=== PATIENT | male | born 1935 | race Caucasian/White ===

== ENCOUNTER → 2016-02-23 | Outpatient (CLI) | payer MEDICARE, OTHER ==
[2016-02-23 10:27] LABS: HEMATOCRIT 34.6 % (37.9-51.0); HEMOGLOBIN 11.3 g/dL (13.5-17.0); HGB HCT DIFFERENCE -0.7; MEAN CORPUSCULAR HEMOGLOBIN 31.5 pg (27.0-33.4); MEAN CORPUSCULAR HGB CONC 32.6 g/dL (32.0-36.0); MEAN CORPUSCULAR VOLUME 97 fl (80-97); RED BLOOD COUNT 3.58 10^6/uL (4.35-5.55); RED CELL DISTRIBUTION WIDTH 13.1 % (11.5-14.0); WHITE BLOOD COUNT 6.9 10^3/uL (4.0-10.5)
[2016-02-23 11:00] LABS: ANION GAP 9 (5-19); BLOOD UREA NITROGEN 31 mg/dL (7-20); CALCIUM 9.4 mg/dL (8.4-10.2); CARBON DIOXIDE 30 mmol/L (22-30); CHLORIDE 106 mmol/L (98-107); CREATININE RESULT 1.12 mg/dL (0.52-1.25); GLUCOSE 93 mg/dL (75-110); POTASSIUM 5.2 mmol/L (3.6-5.0); SODIUM 145.3 mmol/L (137-145)
== END ==
LOC: OD 08:40
PROVIDERS: ATTEND Internal Medicine Nephrology
DX: I12.9 Hypertensive chronic kidney disease with stage 1 through stage 4 chronic kidney disease, or unspecified chronic kidney disease (principal); N18.3 Chronic kidney disease, stage 3 (moderate); E87.5 Hyperkalemia; D64.9 Anemia, unspecified
CPT/HCPCS: 36415; 80048; 85027

== ENCOUNTER 2016-03-08 06:21 | Emergency (ER) | payer MEDICARE, OTHER ==
[2016-03-08 07:59] LABS: PROTHROMBIN TIME 13.6 SEC (11.4-15.4)
[2016-03-08 08:01] LABS: ALANINE AMINOTRANSFERASE 20 U/L (21-72); ALBUMIN 3.7 g/dL (3.5-5.0); ALKALINE PHOSPHATASE 42 U/L (38-126); ANION GAP 10 (5-19); ASPARTATE AMINO TRANSFERASE 12 U/L (17-59); BILIRUBIN,TOTAL 0.5 mg/dL (0.2-1.3); BLOOD UREA NITROGEN 29 mg/dL (7-20); CALCIUM 9.4 mg/dL (8.4-10.2); CARBON DIOXIDE 29 mmol/L (22-30); CHLORIDE 106 mmol/L (98-107); CREATINE KINASE 59 U/L (55-170); CREATININE RESULT 1.42 mg/dL (0.52-1.25); GLUCOSE 87 mg/dL (75-110); LIPASE 437.4 U/L (23-300); MAGNESIUM 1.9 mg/dL (1.6-2.3); POTASSIUM 4.5 mmol/L (3.6-5.0); SODIUM 144.5 mmol/L (137-145); TOTAL PROTEIN 6.7 g/dL (6.3-8.2)
[2016-03-08 08:03] LABS: ABSOLUTE EOSINOPHILS # (AUTO) 0.1 10^3/uL (0.0-0.6); ABSOLUTE LYMPHOCYTES (AUTO) 3.3 10^3/uL (0.5-4.7); ABSOLUTE MONOCYTES (AUTO) 0.8 10^3/uL (0.1-1.4); ABSOLUTE NEUT (AUTO) 4.9 10^3/uL (1.7-8.2); BASOPHILS % (AUTO) 0.3 % (0-2); EOSINOPHILS % (AUTO) 1.5 % (0-6); HEMATOCRIT 33.8 % (37.9-51.0); HEMOGLOBIN 11.4 g/dL (13.5-17.0); HGB HCT DIFFERENCE 0.4; LYMPHOCYTES % (AUTO) 36.1 % (13-45); MEAN CORPUSCULAR HGB CONC 33.6 g/dL (32.0-36.0); MEAN CORPUSCULAR VOLUME 95 fl (80-97); MONOCYTES % (AUTO) 8.8 % (3-13); RED BLOOD COUNT 3.55 10^6/uL (4.35-5.55); RED CELL DISTRIBUTION WIDTH 13.1 % (11.5-14.0); SEGMENTED NEUTROPHILS % (AUTO) 53.3 % (42-78); URINE BARBITURATES SCREEN NEGATIVE; URINE METHADONE SCREEN NEGATIVE; URINE OPIATES LOW NEGATIVE; URINE PHENCYCLIDINE SCREEN NEGATIVE; WHITE BLOOD COUNT 9.2 10^3/uL (4.0-10.5)
[2016-03-08 08:25] LABS: CREATINE KINASE MB < 0.22 ng/mL (<4.55); TROPONIN I < 0.012 ng/mL
--- NOTE | 2016-03-08 08:30 | EKG REPORT ---
SEVERITY:- NORMAL ECG - SINUS RHYTHM : Confirmed by: Lisa Johnson 08-Mar-2016 08:28:53
[2016-03-08 09:00] LABS: APPEARANCE,URINE CLEAR; BILIRUBIN,URINE NEGATIVE (NEGATIVE); GLUCOSE, URINE NEGATIVE (NEGATIVE); KETONES,URINE NEGATIVE (NEGATIVE); LEUKOCYTE ESTERASE,URINE NEGATIVE (NEGATIVE); NITRITE,URINE NEGATIVE (NEGATIVE); PROTEIN,URINE NEGATIVE (NEGATIVE); URINE SPECIFIC GRAVITY 1.009; UROBILINOGEN,URINE NEGATIVE mg/dL (<2.0)
--- NOTE | 2016-03-08 12:18 | ER Document Report ---
ED General - General Chief Complaint: Altered Mental Status Stated Complaint: POSSIBLE STROKE TRAVEL OUTSIDE OF THE [place] IN LAST 30 DAYS: No - HPI Patient complains to provider of: altered mental status possible stroke Notes: EMS reports there called to the patient's house for altered mental status and possible stroke states that the son noticed patient has some facial drooping states last time patient was seen normal according to the son at scene was 10: 00 last night. Patient had symptoms upon awakening according to EMS report. Upon arrival patient is confused with what seems to be expressive aphasia able to move all 4 extremities. Due to the patient's expressive aphasia the history of present illness was very limited. The family at bedside. Patient otherwise alert no signs of impending distress - Related Data Allergies/Adverse Reactions: No Known Allergies Allergy (Verified 09/18/14 19:13) Past Medical History - Social History Smoking Status: Unknown if Ever Smoked Family History: Reviewed & Not Pertinent Patient has suicidal ideation: No Patient has homicidal ideation: No - Past Medical History Cardiac Medical History: Reports: Hx Hypercholesterolemia, Hx Hypertension Neurological Medical History: Reports: Hx Seizures Renal/ Medical History: Reports: Hx Benign Prostatic Hyperplasia. Denies: Hx Peritoneal Dialysis - Immunizations Hx Diphtheria, Pertussis, Tetanus Vaccination: No Review of Systems - Review of Systems -: Yes ROS unobtainable due to patient's medical condition - Altered mental status Physical Exam - Vital signs Vitals: Temp Pulse Resp BP Pulse Ox 98.1 F 64 16 149/93 H 100 03/08/16 06:23 03/08/16 06:23 03/08/16 06:23 03/08/16 06:23 03/08/16 06:23 Interpretation: Normal - General General appearance: Appears well, Alert - HEENT Head: Normocephalic, Atraumatic Eyes: Normal Pupils: PERRL - Respiratory Respiratory status: No respiratory distress Chest status: Nontender Breath sounds: Normal Chest palpation: Normal - Cardiovascular Rhythm: Regular Heart sounds: Normal auscultation Murmur: No - Abdominal Inspection: Normal Distension: No distension Bowel sounds: Normal Tenderness: Nontender Organomegaly: No organomegaly - Back Back: Normal, Nontender - Extremities General upper extremity: Normal inspection, Nontender, Normal color, Normal ROM , Normal temperature General lower extremity: Normal inspection, Nontender, Normal color, Normal ROM , Normal temperature, Normal weight bearing. No: Tammi's sign - Neurological Neuro grossly intact: Yes [place] Coma Scale Eye Opening: Spontaneous [place] Coma Scale Verbal: Confused [place] Coma Scale Motor: Obeys Commands [place] Coma Scale Total: 14 Speech: Expressive aphasia Motor strength normal: LUE, RUE, LLE, RLE Sensory: Normal - Psychological Associated symptoms: Confused - Skin Skin Temperature: Warm Skin Moisture: Dry Skin Color: Normal Course - Re-evaluation Re-evalutation: 03/08/16 14:25 Patient coming in for evaluation of altered mental status. The patient's daughter arrived at bedside. Upon evaluation daughter states that her father is no signs of acute distress or change. States that the patient normally has expressive aphasia difficulty speaking due to previous strokes. Patient's lab work and evaluation revealed no other critical etiology. Patient remained stable here in the ER no signs of stroke. Long discussion with family members at bedside due to no acute findings recommend discharge home family members agree - Vital Signs Vital signs: Temp Pulse Resp BP Pulse Ox 98.1 F 60 24 H 141/95 H 99 03/08/16 06:23 03/08/16 10:44 03/08/16 12:01 03/08/16 12:01 03/08/16 12:01 - Laboratory Result Diagrams: 03/08/16 06:55 03/08/16 06:55 Laboratory results interpreted by me: 03/08/16 03/08/16 06:55 06:55 RBC 3.55 L Hgb 11.4 L Hct 33.8 L Plt Count 100 L BUN 29 H Creatinine 1.42 H Est GFR ( Amer) 58 L Est GFR (Non-Af Amer) 48 L AST 12 L ALT 20 L Lipase 437.4 H Discharge - Discharge Clinical Impression: Expressive aphasia, History of CVA (cerebrovascular accident) Condition: Good Disposition: HOME, SELF-CARE Additional Instructions: Patient was seen and evaluated here for possible onset of altered mental status. There is no significant are clear etiology for any altered mental status. Patient seems to be back to baseline at this time. No need for antibiotics or surgery or admission to the hospital. We recommend following up with your primary care physician within one week
[2016-03-08 12:23] VITALS: BP 141/95
== END 2016-03-08 12:00 | disposition home or self-care (01) ==
LOC: ER 06:21
DX: R47.01 Aphasia (principal); R41.82 Altered mental status, unspecified; E78.00 Pure hypercholesterolemia, unspecified; I10 Essential (primary) hypertension; Z86.73 Personal history of transient ischemic attack (TIA), and cerebral infarction without residual deficits
CPT/HCPCS: 36415; 70450; 71010; 80053; 80177; 80307; 81001; 82550; 82553; 83690; 83735; 84484; 85025; 85610; 93005; 93010; 99285

== ENCOUNTER → 2016-08-05 | Outpatient (CLI) | payer MEDICARE, OTHER ==
[2016-08-05 15:13] LABS: HEMATOCRIT 31.5 % (37.9-51.0); HEMOGLOBIN 10.5 g/dL (13.5-17.0); MEAN CORPUSCULAR HEMOGLOBIN 32.2 pg (27.0-33.4); MEAN CORPUSCULAR HGB CONC 33.4 g/dL (32.0-36.0); MEAN CORPUSCULAR VOLUME 97 fl (80-97); RED BLOOD COUNT 3.27 10^6/uL (4.35-5.55); RED CELL DISTRIBUTION WIDTH 13.5 % (11.5-14.0); WHITE BLOOD COUNT 7.1 10^3/uL (4.0-10.5)
[2016-08-05 15:29] LABS: ANION GAP 12 (5-19); BLOOD UREA NITROGEN 28 mg/dL (7-20); CALCIUM 9.5 mg/dL (8.4-10.2); CARBON DIOXIDE 25 mmol/L (22-30); CHLORIDE 104 mmol/L (98-107); CREATININE RESULT 1.37 mg/dL (0.52-1.25); MAGNESIUM 1.9 mg/dL (1.6-2.3); POTASSIUM 5.2 mmol/L (3.6-5.0); SODIUM 140.9 mmol/L (137-145)
[2016-08-05 15:30] LABS: GLUCOSE 102 mg/dL (75-110)
[2016-08-05 15:59] LABS: THYROID STIMULATING HORMONE 3.33 uIU/mL (0.47-4.68)
== END ==
LOC: OD 13:36
PROVIDERS: ATTEND Internal Medicine Cardiovascular Disease
DX: I10 Essential (primary) hypertension (principal); R00.0 Tachycardia, unspecified
CPT/HCPCS: 36415; 80048; 83735; 84439; 84443; 85027

== ENCOUNTER 2016-09-22 15:01 | Inpatient (IN) | payer OTHER, MEDICARE ==
[2016-09-22] MEDS ORDERED: NORMAL SALINE 1000 ML 1,000 ML IV ONE ×2 (15:08→16:07)
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
[2016-09-22] MEDS ORDERED: ONDANSETRON HCL INJ/PF 4 MG/2 ML SDV IV ONE (15:35)
[2016-09-22] MEDS ORDERED: NALOXONE HCL INJ/PF 0.4 MG/1 ML SDV IV ONE (15:36)
[2016-09-22 15:49] LABS: ABSOLUTE EOSINOPHILS # (AUTO) 0.1 10^3/uL (0.0-0.6); ABSOLUTE LYMPHOCYTES (AUTO) 1.7 10^3/uL (0.5-4.7); ABSOLUTE MONOCYTES (AUTO) 0.6 10^3/uL (0.1-1.4); ABSOLUTE NEUT (AUTO) 3.5 10^3/uL (1.7-8.2); BASOPHILS % (AUTO) 0.5 % (0-2); EOSINOPHILS % (AUTO) 0.9 % (0-6); HEMATOCRIT 31.3 % (37.9-51.0); HEMOGLOBIN 10.4 g/dL (13.5-17.0); HGB HCT DIFFERENCE -0.1; LYMPHOCYTES % (AUTO) 28.5 % (13-45); MEAN CORPUSCULAR HEMOGLOBIN 32.3 pg (27.0-33.4); MEAN CORPUSCULAR HGB CONC 33.2 g/dL (32.0-36.0); MEAN CORPUSCULAR VOLUME 98 fl (80-97); MONOCYTES % (AUTO) 9.9 % (3-13); RED BLOOD COUNT 3.22 10^6/uL (4.35-5.55); RED CELL DISTRIBUTION WIDTH 13.3 % (11.5-14.0); SEGMENTED NEUTROPHILS % (AUTO) 60.2 % (42-78); WHITE BLOOD COUNT 5.9 10^3/uL (4.0-10.5)
[2016-09-22 15:58] LABS: ALANINE AMINOTRANSFERASE 18 U/L (21-72); ALBUMIN 3.7 g/dL (3.5-5.0); ALKALINE PHOSPHATASE 36 U/L (38-126); ANION GAP 10 (5-19); ASPARTATE AMINO TRANSFERASE 12 U/L (17-59); BILIRUBIN,DIRECT 0.4 mg/dL (0.0-0.4); BILIRUBIN,TOTAL 0.4 mg/dL (0.2-1.3); BLOOD UREA NITROGEN 56 mg/dL (7-20); CALCIUM 9.5 mg/dL (8.4-10.2); CARBON DIOXIDE 28 mmol/L (22-30); CHLORIDE 107 mmol/L (98-107); CREATINE KINASE 30 U/L (55-170); CREATININE RESULT 2.24 mg/dL (0.52-1.25); GLUCOSE 111 mg/dL (75-110); LIPASE 314.4 U/L (23-300); POTASSIUM 5.4 mmol/L (3.6-5.0); SODIUM 144.7 mmol/L (137-145); TOTAL PROTEIN 6.5 g/dL (6.3-8.2)
[2016-09-22 16:06] LABS: APPEARANCE,URINE CLOUDY; BILIRUBIN,URINE NEGATIVE (NEGATIVE); GLUCOSE, URINE NEGATIVE (NEGATIVE); KETONES,URINE NEGATIVE (NEGATIVE); LEUKOCYTE ESTERASE,URINE NEGATIVE (NEGATIVE); NITRITE,URINE NEGATIVE (NEGATIVE); PROTEIN,URINE 30 mg/dL (NEGATIVE); URINE SPECIFIC GRAVITY 1.014; UROBILINOGEN,URINE NEGATIVE mg/dL (<2.0)
[2016-09-22 16:18] LABS: URINE BARBITURATES SCREEN NEGATIVE; URINE METHADONE SCREEN NEGATIVE; URINE OPIATES LOW UNCONFIRMED POSITIVE; URINE PHENCYCLIDINE SCREEN NEGATIVE
[2016-09-22 16:25] LABS: VENOUS BLOOD BASE EXCESS 0.1 mmol/L; VENOUS BLOOD HCO3 27.6 mmol/L (20-32); VENOUS BLOOD PCO2 58.9 mmHg (35-63); VENOUS BLOOD PH 7.29 (7.30-7.42)
--- NOTE | 2016-09-22 17:57 | EKG REPORT ---
SEVERITY:- ABNORMAL ECG - ATRIAL FIBRILLATION : Confirmed by: Matthew Cordao MD 22-Sep-2016 17:57:32
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
[2016-09-22] MEDS ORDERED: NALOXONE HCL INJ/PF 0.4 MG/1 ML SDV IV PRN (18:14)
[2016-09-22] MEDS ORDERED: LORAZEPAM 0.5 MG TABLET PO PRN (18:17)
[2016-09-22] MEDS: NORMAL SALINE 1000 ML 1,000 ML IV PRN (18:52)
[2016-09-22] MEDS: HEPARIN SOD (PORCINE) 5,000 UNIT/ML 1 ML SYRINGE SUBCUT SCH (21:35)
[2016-09-22] MEDS: SIMVASTATIN 10 MG TABLET PO SCH (21:36)
[2016-09-22] MEDS: LEVETIRACETAM 500 MG TABLET PO SCH (21:36)
[2016-09-23] MEDS: NORMAL SALINE 1000 ML 1,000 ML IV PRN ×2 (05:26→22:32)
[2016-09-23] MEDS: HEPARIN SOD (PORCINE) 5,000 UNIT/ML 1 ML SYRINGE SUBCUT SCH ×3 (05:28→21:21)
[2016-09-23 07:24] LABS: ABSOLUTE EOSINOPHILS # (AUTO) 0.2 10^3/uL (0.0-0.6); ABSOLUTE LYMPHOCYTES (AUTO) 4.1 10^3/uL (0.5-4.7); ABSOLUTE MONOCYTES (AUTO) 0.7 10^3/uL (0.1-1.4); ABSOLUTE NEUT (AUTO) 4.4 10^3/uL (1.7-8.2); BASOPHILS % (AUTO) 0.2 % (0-2); EOSINOPHILS % (AUTO) 1.7 % (0-6); HEMATOCRIT 34.4 % (37.9-51.0); HEMOGLOBIN 11.7 g/dL (13.5-17.0); HGB HCT DIFFERENCE 0.7; LYMPHOCYTES % (AUTO) 43.5 % (13-45); MEAN CORPUSCULAR HEMOGLOBIN 32.8 pg (27.0-33.4); MEAN CORPUSCULAR VOLUME 97 fl (80-97); MONOCYTES % (AUTO) 7.7 % (3-13); RED BLOOD COUNT 3.56 10^6/uL (4.35-5.55); SEGMENTED NEUTROPHILS % (AUTO) 46.9 % (42-78); WHITE BLOOD COUNT 9.4 10^3/uL (4.0-10.5)
[2016-09-23 07:48] LABS: ANION GAP 11 (5-19); BLOOD UREA NITROGEN 40 mg/dL (7-20); CALCIUM 9.5 mg/dL (8.4-10.2); CARBON DIOXIDE 26 mmol/L (22-30); CHLORIDE 109 mmol/L (98-107); GLUCOSE 112 mg/dL (75-110); MAGNESIUM 1.9 mg/dL (1.6-2.3); SODIUM 145.9 mmol/L (137-145)
[2016-09-23 08:03] LABS: POTASSIUM 4.4 mmol/L (3.6-5.0)
[2016-09-23] MEDS ORDERED: (PENDING PHARMACY ID) (Levetiracetam [Keppra] 250 MG) PO SCH (10:00)
[2016-09-23] MEDS ORDERED: (PENDING PHARMACY ID) (Simvastatin [Simvastatin] 20 MG) PO SCH (10:00)
[2016-09-23] MEDS: EZETIMIBE 10 MG TABLET PO SCH (10:26)
[2016-09-23] MEDS: LEVETIRACETAM 500 MG TABLET PO SCH ×2 (10:27→21:22)
[2016-09-23] MEDS: FINASTERIDE 5 MG TABLET PO SCH (10:27)
[2016-09-23] MEDS: DOCUSATE SODIUM 100 MG CAPSULE PO SCH ×2 (10:29→17:10)
--- NOTE | 2016-09-23 13:36 | PDOC PROGRESS REPORT ---
Subjective Progress Note for:: 09/23/16 Subjective:: Patient was seen there were no acute events overnight. Unfortunately he still has word salad and I cannot get review of systems from him today. Physical Exam Vital Signs: Temp Pulse Resp BP Pulse Ox 98.0 F 54 L 16 102/42 L 100 09/23/16 07:09 09/23/16 07:09 09/23/16 07:09 09/23/16 07:09 09/23/16 07:09 Intake & Output 09/22/16 09/23/16 09/24/16 06:59 06:59 06:59 Intake Total 1350 Balance 1350 Weight 53.1 kg GENERAL: He is a well-developed thin frail-appearing elderly white male resting in bed currently in no acute distress HEART: [Bradycardic. No murmurs, rubs or gallops.] LUNGS: [Relatively clear bilaterally with equal rise and fall of the chest. ] ABDOMEN: [Soft, nontender, nondistended with normoactive bowel sounds] EXTREMETIES: [No clubbing, cyanosis or edema. 2+ peripheral pulses bilaterally. ] NEURO: [Awake, alert. Patient cannot fully cooperate with neurologic assessment. Patient's speech has a very slow kushal. His conversation is comprised of word salad. With this said, the patient does look brighter today.] Results Laboratory Results: 09/23/16 06:21 09/23/16 06:21 09/23/16 09/23/16 06:21 06:21 WBC 9.4 RBC 3.56 L Hgb 11.7 L Hct 34.4 L MCV 97 MCH 32.8 MCHC 34.0 RDW 13.0 Plt Count 133 L Seg Neutrophils % 46.9 Lymphocytes % 43.5 Monocytes % 7.7 Eosinophils % 1.7 Basophils % 0.2 Absolute Neutrophils 4.4 Absolute Lymphocytes 4.1 Absolute Monocytes 0.7 Absolute Eosinophils 0.2 Absolute Basophils 0.0 Sodium 145.9 H Potassium 4.4 D Chloride 109 H Carbon Dioxide 26 Anion Gap 11 BUN 40 H Creatinine 1.70 H Est GFR ( Amer) 47 L Est GFR (Non-Af Amer) 39 L Glucose 112 H Calcium 9.5 Magnesium 1.9 Assessment & Plan - Diagnosis (1) CHERYL (acute kidney injury) Plan: Continue IV fluids. Renal failure is greatly improved and closer to normal.. (2) Altered mental status Qualifiers: Altered mental status type: unspecified Qualified Code(s): R41.82 - Altered mental status, unspecified Plan: This is presumably acute on chronic secondary to opioid overuse. It is unknown whether or not this is the patient's baseline. We will see if his family comes back today and feels that he is at baseline. Continue to monitor. CT of the head was normal (3) Opioid intoxication Qualifiers: Complication of substance-induced condition: with unspecified complication Qualified Code(s): F11.929 - Opioid use, unspecified with intoxication, unspecified Plan: No further need for Narcan. Patient seems to be very bright and alert. He is quite chatty at the bedside although, his conversation is completely word salad.. (4) Sinus bradycardia Plan: Patient sinus bradycardic at a rate in the 50s. Continue to hold his Norvasc. (5) HTN (hypertension) Plan: Amlodipine is currently on hold. Blood pressures have been in the low 100s. (6) BPH (benign prostatic hyperplasia) Plan: Resume finasteride. - Time Time Spent with patient: 15-24 minutes - Inpatient Certification Medical Necessity: Need Close Monitoring Due to Risk of Patient Decompensation
[2016-09-23] MEDS ORDERED: LORAZEPAM 0.5 MG TABLET PO PRN (15:00)
[2016-09-23] MEDS: SIMVASTATIN 10 MG TABLET PO SCH (21:21)
[2016-09-24] MEDS: HEPARIN SOD (PORCINE) 5,000 UNIT/ML 1 ML SYRINGE SUBCUT SCH ×3 (05:15→21:18)
[2016-09-24] MEDS: DOCUSATE SODIUM 100 MG CAPSULE PO SCH ×2 (10:44→18:23)
[2016-09-24] MEDS: EZETIMIBE 10 MG TABLET PO SCH (10:44)
[2016-09-24] MEDS: LEVETIRACETAM 500 MG TABLET PO SCH ×2 (10:44→21:19)
[2016-09-24] MEDS: FINASTERIDE 5 MG TABLET PO SCH (10:45)
[2016-09-24 13:07] LABS: ABSOLUTE EOSINOPHILS # (AUTO) 0.1 10^3/uL (0.0-0.6); ABSOLUTE LYMPHOCYTES (AUTO) 2.1 10^3/uL (0.5-4.7); ABSOLUTE MONOCYTES (AUTO) 0.6 10^3/uL (0.1-1.4); ABSOLUTE NEUT (AUTO) 3.6 10^3/uL (1.7-8.2); BASOPHILS % (AUTO) 0.3 % (0-2); EOSINOPHILS % (AUTO) 1.8 % (0-6); HEMATOCRIT 33.2 % (37.9-51.0); HEMOGLOBIN 10.9 g/dL (13.5-17.0); HGB HCT DIFFERENCE -0.5; LYMPHOCYTES % (AUTO) 33.1 % (13-45); MEAN CORPUSCULAR HEMOGLOBIN 31.9 pg (27.0-33.4); MEAN CORPUSCULAR HGB CONC 32.9 g/dL (32.0-36.0); MEAN CORPUSCULAR VOLUME 97 fl (80-97); MONOCYTES % (AUTO) 8.9 % (3-13); RED BLOOD COUNT 3.42 10^6/uL (4.35-5.55); RED CELL DISTRIBUTION WIDTH 13.2 % (11.5-14.0); SEGMENTED NEUTROPHILS % (AUTO) 55.9 % (42-78); WHITE BLOOD COUNT 6.5 10^3/uL (4.0-10.5)
[2016-09-24 13:21] LABS: ANION GAP 8 (5-19); BLOOD UREA NITROGEN 34 mg/dL (7-20); CALCIUM 9.1 mg/dL (8.4-10.2); CARBON DIOXIDE 25 mmol/L (22-30); CHLORIDE 110 mmol/L (98-107); CREATININE RESULT 1.23 mg/dL (0.52-1.25); GLUCOSE 84 mg/dL (75-110); MAGNESIUM 1.7 mg/dL (1.6-2.3); POTASSIUM 5.2 mmol/L (3.6-5.0); SODIUM 143.2 mmol/L (137-145)
--- NOTE | 2016-09-24 15:42 | RADIOLOGY REPORT (SQ) ---
EXAM DESCRIPTION: CT HEAD WITHOUT COMPLETED DATE/TIME: 4:17 pm REASON FOR STUDY: Slurred speech COMPARISON: CT brain 08/16/2013, 06/07/2014, 04/22/2015, 03/08/2016 TECHNIQUE: Uncontrasted CT brain was performed, reviewed at bone, subdural, and brain parenchymal wi ndows. RADIATION DOSE: 64.6 mGy LIMITATIONS: None FINDINGS: No CT evidence of acute large territory ischemic change, acute intracranial hemorrhage, ma ss effect, or midline shift. Old infarcts are present throughout the right and left temporal lobes, inferior right frontal lobe. Old lacunar infarct left medial basal ganglia. Old lacunar infarct right posterior cerebellar hemisp here. Bone windows demonstrate no skull fracture. Paranasal sinuses, mastoid air cells clear. This report was discussed with Dr. Manley IMPRESSION: No acute findings. Multiple old infarcts, unchanged.
--- NOTE | 2016-09-24 15:55 | RADIOLOGY REPORT (SQ) ---
EXAM DESCRIPTION: CHEST SINGLE VIEW COMPLETED DATE/TIME: 09/22/2016 3:22 pm REASON FOR STUDY: ALtered mental status COMPARISON: Chest films 03/08/2016, 04/22/2015 TECHNIQUE: AP portable chest film, 09/22/2016 1515 hours LIMITATIONS: A FINDINGS: Lungs are free of focal infiltrates. No pleural effusion. No pneumothorax. Cardiac silhouette size, joey unremarkable. No acute bony changes. The EKG leads over the chest. Surgical clips left neck unchanged. IMPRESSION: No acute findings
[2016-09-24] MEDS: SIMVASTATIN 10 MG TABLET PO SCH (21:18)
[2016-09-25] MEDS: HEPARIN SOD (PORCINE) 5,000 UNIT/ML 1 ML SYRINGE SUBCUT SCH ×3 (05:24→21:50)
[2016-09-25] MEDS: EZETIMIBE 10 MG TABLET PO SCH (09:50)
[2016-09-25] MEDS: FINASTERIDE 5 MG TABLET PO SCH (09:52)
[2016-09-25] MEDS: DOCUSATE SODIUM 100 MG CAPSULE PO SCH ×2 (09:52→18:00)
[2016-09-25] MEDS: LEVETIRACETAM 500 MG TABLET PO SCH ×2 (09:52→21:36)
[2016-09-25] MEDS ORDERED: AMLODIPINE BESYLATE 5 MG TABLET PO ONE (13:52)
--- NOTE | 2016-09-25 14:04 | PDOC PROGRESS REPORT ---
Subjective Progress Note for:: 09/25/16 Subjective:: No new issues. Physical Exam Vital Signs: Temp Pulse Resp BP Pulse Ox 97.8 F 66 18 162/57 H 100 09/25/16 11:43 09/25/16 11:43 09/25/16 11:43 09/25/16 11:43 09/25/16 11:43 Intake & Output 09/24/16 09/25/16 09/26/16 06:59 06:59 06:59 Intake Total 2296 857 200 Balance 2296 857 200 Weight 53.8 kg 53 kg General appearance: PRESENT: no acute distress Head exam: PRESENT: atraumatic, normocephalic Eye exam: PRESENT: conjunctiva pink, EOMI, PERRLA. ABSENT: scleral icterus Mouth exam: PRESENT: moist Neck exam: ABSENT: carotid bruit, JVD, lymphadenopathy, thyromegaly Respiratory exam: PRESENT: clear to auscultation yumiko. ABSENT: rales, rhonchi, wheezes Cardiovascular exam: PRESENT: RRR GI/Abdominal exam: PRESENT: normal bowel sounds, soft. ABSENT: distended, guarding, mass, organolmegaly, rebound, tenderness Extremities exam: PRESENT: full ROM. ABSENT: calf tenderness, clubbing, pedal edema Neurological exam: PRESENT: awake. ABSENT: motor sensory deficit Skin exam: PRESENT: dry, warm Results Laboratory Results: 09/24/16 12:50 09/24/16 12:50 Impressions: Chest X-Ray 09/22/16 15:07 IMPRESSION: No acute findings Head CT 09/22/16 16:08 IMPRESSION: No acute findings. Multiple old infarcts, unchanged. Assessment & Plan - Diagnosis (1) Altered mental status Qualifiers: Altered mental status type: unspecified Qualified Code(s): R41.82 - Altered mental status, unspecified Is this a current diagnosis for this admission?: Yes Plan: Resolved. Pt mental status at baseline. (2) Opioid intoxication Qualifiers: Complication of substance-induced condition: with unspecified complication Qualified Code(s): F11.929 - Opioid use, unspecified with intoxication, unspecified Is this a current diagnosis for this admission?: Yes Plan: Resolved. Pain medication held. (3) CHERYL (acute kidney injury) Is this a current diagnosis for this admission?: Yes Plan: Resolving. Will continue IVFs. (4) Hyperkalemia Is this a current diagnosis for this admission?: Yes Plan: Will continue IVFs. Will check labs in am. (5) BPH (benign prostatic hyperplasia) Qualifiers: Lower urinary tract symptom detail: urinary obstruction Is this a current diagnosis for this admission?: Yes Plan: Will continue Finasteride. (6) HTN (hypertension) Qualifiers: Hypertension type: essential hypertension Qualified Code(s): I10 - Essential (primary) hypertension Is this a current diagnosis for this admission?: Yes Plan: Will restart Norvasc. (7) DVT prophylaxis Is this a current diagnosis for this admission?: Yes Plan: Heparin - Time Time Spent with patient: 15-24 minutes
[2016-09-25] MEDS: NORMAL SALINE 1000 ML 1,000 ML IV PRN (14:53)
[2016-09-25] MEDS: SIMVASTATIN 10 MG TABLET PO SCH (21:38)
[2016-09-26] MEDS: NORMAL SALINE 1000 ML 1,000 ML IV PRN (00:02)
[2016-09-26 05:17] LABS: ALANINE AMINOTRANSFERASE 22 U/L (21-72); ALBUMIN 3.4 g/dL (3.5-5.0); ALKALINE PHOSPHATASE 33 U/L (38-126); ANION GAP 7 (5-19); ASPARTATE AMINO TRANSFERASE 15 U/L (17-59); BILIRUBIN,DIRECT 0.4 mg/dL (0.0-0.4); BILIRUBIN,TOTAL 0.4 mg/dL (0.2-1.3); BLOOD UREA NITROGEN 29 mg/dL (7-20); CALCIUM 9.1 mg/dL (8.4-10.2); CARBON DIOXIDE 24 mmol/L (22-30); CHLORIDE 111 mmol/L (98-107); GLUCOSE 90 mg/dL (75-110); POTASSIUM 4.8 mmol/L (3.6-5.0); SODIUM 141.8 mmol/L (137-145); TOTAL PROTEIN 6.2 g/dL (6.3-8.2)
[2016-09-26] MEDS: HEPARIN SOD (PORCINE) 5,000 UNIT/ML 1 ML SYRINGE SUBCUT SCH ×3 (06:59→21:58)
[2016-09-26] MEDS ORDERED: AMLODIPINE BESYLATE 5 MG TABLET PO SCH (10:00)
[2016-09-26] MEDS: LEVETIRACETAM 500 MG TABLET PO SCH ×2 (10:27→21:55)
[2016-09-26] MEDS: EZETIMIBE 10 MG TABLET PO SCH (10:27)
[2016-09-26] MEDS: DOCUSATE SODIUM 100 MG CAPSULE PO SCH ×2 (10:27→17:19)
[2016-09-26] MEDS: FINASTERIDE 5 MG TABLET PO SCH (10:28)
--- NOTE | 2016-09-26 11:35 | PDOC PROGRESS REPORT ---
Subjective Progress Note for:: 09/26/16 Subjective:: No new issues. Physical Exam Vital Signs: Temp Pulse Resp BP Pulse Ox 98.1 F 60 19 175/60 H 100 09/26/16 07:50 09/26/16 08:00 09/26/16 08:00 09/26/16 08:00 09/26/16 08:00 Intake & Output 09/25/16 09/26/16 09/27/16 06:59 06:59 06:59 Intake Total 857 2128 Output Total 600 Balance 857 1528 Weight 53 kg 52.9 kg General appearance: PRESENT: no acute distress, thin Head exam: PRESENT: atraumatic, normocephalic Eye exam: PRESENT: conjunctiva pink, EOMI. ABSENT: scleral icterus Mouth exam: PRESENT: moist Neck exam: ABSENT: carotid bruit, JVD, lymphadenopathy, thyromegaly Respiratory exam: PRESENT: clear to auscultation yumiko. ABSENT: rales, rhonchi, wheezes Cardiovascular exam: PRESENT: RRR. ABSENT: diastolic murmur, rubs, systolic murmur Pulses: PRESENT: normal dorsalis pedis pul Vascular exam: PRESENT: normal capillary refill GI/Abdominal exam: PRESENT: normal bowel sounds, soft. ABSENT: distended, guarding, mass, organolmegaly, rebound, tenderness Extremities exam: PRESENT: full ROM. ABSENT: calf tenderness, clubbing, pedal edema Musculoskeletal exam: PRESENT: full ROM Neurological exam: PRESENT: awake Skin exam: PRESENT: dry, warm Results Laboratory Results: 09/24/16 12:50 09/26/16 04:30 09/26/16 04:30 Sodium 141.8 Potassium 4.8 Chloride 111 H Carbon Dioxide 24 Anion Gap 7 BUN 29 H Creatinine 1.10 Est GFR ( Amer) > 60 Est GFR (Non-Af Amer) > 60 Glucose 90 Calcium 9.1 Total Bilirubin 0.4 AST 15 L ALT 22 Alkaline Phosphatase 33 L Total Protein 6.2 L Albumin 3.4 L Impressions: Chest X-Ray 09/22/16 15:07 IMPRESSION: No acute findings Head CT 09/22/16 16:08 IMPRESSION: No acute findings. Multiple old infarcts, unchanged. Assessment & Plan - Diagnosis (1) HTN (hypertension) Qualifiers: Hypertension type: essential hypertension Qualified Code(s): I10 - Essential (primary) hypertension Is this a current diagnosis for this admission?: Yes Plan: Will increase Norvasc and start Lisinopril. (2) Altered mental status Qualifiers: Altered mental status type: unspecified Qualified Code(s): R41.82 - Altered mental status, unspecified Is this a current diagnosis for this admission?: Yes Plan: Resolved. Pt mental status at baseline. (3) Opioid intoxication Qualifiers: Complication of substance-induced condition: with unspecified complication Qualified Code(s): F11.929 - Opioid use, unspecified with intoxication, unspecified Is this a current diagnosis for this admission?: Yes Plan: Resolved. Pain medication held. (4) CHERYL (acute kidney injury) Is this a current diagnosis for this admission?: Yes Plan: Resolved. Will discontinue IVF. (5) Hyperkalemia Is this a current diagnosis for this admission?: Yes Plan: Resolved. Will check BMP in am (6) BPH (benign prostatic hyperplasia) Qualifiers: Lower urinary tract symptom detail: urinary obstruction Is this a current diagnosis for this admission?: Yes Plan: Will continue Finasteride. (7) CVA, old, aphasia Is this a current diagnosis for this admission?: Yes Plan: Complicated by Expressive Aphasia: Will place on Aspirin 81 mg PO Qdaily. (8) DVT prophylaxis Is this a current diagnosis for this admission?: Yes Plan: Heparin
[2016-09-26] MEDS: AMLODIPINE BESYLATE 5 MG TABLET PO SCH (21:54)
[2016-09-26] MEDS: SIMVASTATIN 10 MG TABLET PO SCH (21:55)
[2016-09-27 06:01] LABS: ANION GAP 5 (5-19); BLOOD UREA NITROGEN 26 mg/dL (7-20); CALCIUM 9.5 mg/dL (8.4-10.2); CARBON DIOXIDE 27 mmol/L (22-30); CHLORIDE 110 mmol/L (98-107); CREATININE RESULT 1.12 mg/dL (0.52-1.25); GLUCOSE 85 mg/dL (75-110); POTASSIUM 4.7 mmol/L (3.6-5.0); SODIUM 141.8 mmol/L (137-145)
[2016-09-27] MEDS: HEPARIN SOD (PORCINE) 5,000 UNIT/ML 1 ML SYRINGE SUBCUT SCH ×3 (06:16→21:15)
[2016-09-27] MEDS: ASPIRIN 81 MG TABLET, CHEWABLE PO SCH (10:04)
[2016-09-27] MEDS: AMLODIPINE BESYLATE 5 MG TABLET PO SCH ×2 (10:04→21:16)
[2016-09-27] MEDS: EZETIMIBE 10 MG TABLET PO SCH (10:04)
[2016-09-27] MEDS: DOCUSATE SODIUM 100 MG CAPSULE PO SCH ×2 (10:04→17:52)
[2016-09-27] MEDS: FINASTERIDE 5 MG TABLET PO SCH (10:05)
[2016-09-27] MEDS: LISINOPRIL 5 MG TABLET PO SCH (10:05)
[2016-09-27] MEDS: LEVETIRACETAM 500 MG TABLET PO SCH ×2 (10:05→21:16)
--- NOTE | 2016-09-27 11:04 | PDOC PROGRESS REPORT ---
Subjective Progress Note for:: 09/27/16 Subjective:: No new issues today. Physical Exam Vital Signs: Temp Pulse Resp BP Pulse Ox 98.0 F 71 16 121/99 H 97 09/27/16 07:15 09/27/16 08:00 09/27/16 08:00 09/27/16 08:00 09/27/16 08:00 Intake & Output 09/26/16 09/27/16 09/28/16 06:59 06:59 06:59 Intake Total 2128 1381 Output Total 600 Balance 1528 1381 Weight 52.9 kg 54.1 kg General appearance: PRESENT: no acute distress, well-developed, well-nourished Head exam: PRESENT: atraumatic, normocephalic Eye exam: PRESENT: conjunctival injection Ear exam: PRESENT: normal external ear exam Neck exam: ABSENT: carotid bruit, JVD, lymphadenopathy, thyromegaly Respiratory exam: PRESENT: clear to auscultation yumiko. ABSENT: rales, rhonchi, wheezes Pulses: PRESENT: normal carotid pulses Vascular exam: PRESENT: normal capillary refill GI/Abdominal exam: PRESENT: normal bowel sounds, soft. ABSENT: distended, guarding, mass, organolmegaly, rebound, tenderness Extremities exam: PRESENT: full ROM. ABSENT: calf tenderness, clubbing, pedal edema Musculoskeletal exam: PRESENT: full ROM Neurological exam: PRESENT: alert, CN II-XII grossly intact Skin exam: PRESENT: dry, warm Results Laboratory Results: 09/24/16 12:50 09/27/16 04:37 09/27/16 04:37 Sodium 141.8 Potassium 4.7 Chloride 110 H Carbon Dioxide 27 Anion Gap 5 BUN 26 H Creatinine 1.12 Est GFR ( Amer) > 60 Est GFR (Non-Af Amer) > 60 Glucose 85 Calcium 9.5 Impressions: Chest X-Ray 09/22/16 15:07 IMPRESSION: No acute findings Head CT 09/22/16 16:08 IMPRESSION: No acute findings. Multiple old infarcts, unchanged. Assessment & Plan - Diagnosis (1) HTN (hypertension) Qualifiers: Hypertension type: essential hypertension Qualified Code(s): I10 - Essential (primary) hypertension Is this a current diagnosis for this admission?: Yes Plan: Norvasc and Lisinopril. (2) Altered mental status Qualifiers: Altered mental status type: unspecified Qualified Code(s): R41.82 - Altered mental status, unspecified Is this a current diagnosis for this admission?: Yes Plan: Resolved. Pt mental status at baseline. (3) Opioid intoxication Qualifiers: Complication of substance-induced condition: with unspecified complication Qualified Code(s): F11.929 - Opioid use, unspecified with intoxication, unspecified Is this a current diagnosis for this admission?: Yes Plan: Resolved. Pain medication held. (4) CHERYL (acute kidney injury) Is this a current diagnosis for this admission?: Yes Plan: Resolved. Will discontinue IVF. (5) Hyperkalemia Is this a current diagnosis for this admission?: Yes Plan: Resolved. (6) BPH (benign prostatic hyperplasia) Qualifiers: Lower urinary tract symptom detail: urinary obstruction Is this a current diagnosis for this admission?: Yes Plan: Will continue Finasteride. (7) CVA, old, aphasia Is this a current diagnosis for this admission?: Yes Plan: Complicated by Expressive Aphasia: Aspirin 81 mg PO Qdaily. (8) DVT prophylaxis Is this a current diagnosis for this admission?: Yes Plan: Heparin - Time Time Spent with patient: Less than 15 minutes
[2016-09-27] MEDS: SIMVASTATIN 10 MG TABLET PO SCH (21:17)
[2016-09-28] MEDS: HEPARIN SOD (PORCINE) 5,000 UNIT/ML 1 ML SYRINGE SUBCUT SCH ×3 (05:01→22:07)
[2016-09-28] MEDS: AMLODIPINE BESYLATE 5 MG TABLET PO SCH (10:13)
[2016-09-28] MEDS: ASPIRIN 81 MG TABLET, CHEWABLE PO SCH (10:16)
[2016-09-28] MEDS: EZETIMIBE 10 MG TABLET PO SCH (10:16)
[2016-09-28] MEDS: DOCUSATE SODIUM 100 MG CAPSULE PO SCH ×2 (10:16→17:16)
[2016-09-28] MEDS: FINASTERIDE 5 MG TABLET PO SCH (10:16)
[2016-09-28] MEDS: LEVETIRACETAM 500 MG TABLET PO SCH ×2 (10:17→22:07)
[2016-09-28] MEDS: LISINOPRIL 5 MG TABLET PO SCH (10:20)
--- NOTE | 2016-09-28 11:33 | PDOC PROGRESS REPORT ---
Subjective Progress Note for:: 09/28/16 Subjective:: No New Issues Physical Exam Vital Signs: Temp Pulse Resp BP Pulse Ox 98.1 F 58 L 18 123/47 L 100 09/28/16 07:25 09/28/16 07:25 09/28/16 07:25 09/28/16 07:25 09/28/16 07:25 Intake & Output 09/27/16 09/28/16 09/29/16 06:59 06:59 06:59 Intake Total 1381 976 Balance 1381 976 Weight 54.1 kg 57 kg General appearance: PRESENT: no acute distress, well-developed, well-nourished Head exam: PRESENT: atraumatic, normocephalic Eye exam: PRESENT: conjunctiva pink, EOMI, PERRLA. ABSENT: scleral icterus Ear exam: PRESENT: normal external ear exam Mouth exam: PRESENT: moist, tongue midline Neck exam: ABSENT: carotid bruit, JVD, lymphadenopathy, thyromegaly Respiratory exam: PRESENT: clear to auscultation yumiko. ABSENT: rales, rhonchi, wheezes Cardiovascular exam: PRESENT: RRR. ABSENT: diastolic murmur, rubs, systolic murmur Pulses: PRESENT: normal dorsalis pedis pul GI/Abdominal exam: PRESENT: normal bowel sounds, soft. ABSENT: distended, guarding, mass, organolmegaly, rebound, tenderness Extremities exam: PRESENT: full ROM. ABSENT: calf tenderness, clubbing, pedal edema Musculoskeletal exam: PRESENT: full ROM Neurological exam: PRESENT: alert, awake, oriented to person, aphasic - Expressive Aphasia Skin exam: PRESENT: dry, warm Results Laboratory Results: 09/24/16 12:50 09/27/16 04:37 Impressions: Chest X-Ray 09/22/16 15:07 IMPRESSION: No acute findings Head CT 09/22/16 16:08 IMPRESSION: No acute findings. Multiple old infarcts, unchanged. Assessment & Plan - Diagnosis (1) HTN (hypertension) Qualifiers: Hypertension type: essential hypertension Qualified Code(s): I10 - Essential (primary) hypertension Is this a current diagnosis for this admission?: Yes Plan: Will decrease Norvasc to 5 mg PO Qdaily. (2) Altered mental status Qualifiers: Altered mental status type: unspecified Qualified Code(s): R41.82 - Altered mental status, unspecified Is this a current diagnosis for this admission?: Yes (3) Opioid intoxication Qualifiers: Complication of substance-induced condition: with unspecified complication Qualified Code(s): F11.929 - Opioid use, unspecified with intoxication, unspecified Is this a current diagnosis for this admission?: Yes Plan: Resolved. Pain medication held. (4) CHERYL (acute kidney injury) Is this a current diagnosis for this admission?: Yes Plan: Resolved. Will discontinue IVF. (5) Hyperkalemia Is this a current diagnosis for this admission?: Yes Plan: Resolved. (6) BPH (benign prostatic hyperplasia) Qualifiers: Lower urinary tract symptom detail: urinary obstruction Is this a current diagnosis for this admission?: Yes Plan: Will continue Finasteride. (7) CVA, old, aphasia Is this a current diagnosis for this admission?: Yes Plan: Complicated by Expressive Aphasia: Aspirin 81 mg PO Qdaily. (8) Sinus bradycardia Is this a current diagnosis for this admission?: Yes Plan: Patient asymptomatic. We will continue to monitor. (9) DVT prophylaxis Is this a current diagnosis for this admission?: Yes Plan: Heparin - Time Time Spent with patient: 15-24 minutes
[2016-09-28 20:48] LABS: HEMATOCRIT 27.5 % (37.9-51.0); HEMOGLOBIN 9.4 g/dL (13.5-17.0); HGB HCT DIFFERENCE 0.7; MEAN CORPUSCULAR HEMOGLOBIN 32.5 pg (27.0-33.4); MEAN CORPUSCULAR HGB CONC 34.1 g/dL (32.0-36.0); MEAN CORPUSCULAR VOLUME 95 fl (80-97); RED BLOOD COUNT 2.89 10^6/uL (4.35-5.55); RED CELL DISTRIBUTION WIDTH 13.5 % (11.5-14.0); WHITE BLOOD COUNT 6.3 10^3/uL (4.0-10.5)
[2016-09-28] MEDS: SIMVASTATIN 10 MG TABLET PO SCH (22:07)
[2016-09-29 05:14] LABS: ANION GAP 7 (5-19); BLOOD UREA NITROGEN 31 mg/dL (7-20); CALCIUM 9.5 mg/dL (8.4-10.2); CARBON DIOXIDE 27 mmol/L (22-30); CHLORIDE 108 mmol/L (98-107); CREATININE RESULT 1.14 mg/dL (0.52-1.25); GLUCOSE 87 mg/dL (75-110); POTASSIUM 4.5 mmol/L (3.6-5.0); SODIUM 142.3 mmol/L (137-145)
[2016-09-29] MEDS: HEPARIN SOD (PORCINE) 5,000 UNIT/ML 1 ML SYRINGE SUBCUT SCH ×2 (05:17→13:11)
[2016-09-29] MEDS: DOCUSATE SODIUM 100 MG CAPSULE PO SCH (10:46)
[2016-09-29] MEDS: LEVETIRACETAM 500 MG TABLET PO SCH (10:46)
[2016-09-29] MEDS: FINASTERIDE 5 MG TABLET PO SCH (10:46)
[2016-09-29] MEDS: ASPIRIN 81 MG TABLET, CHEWABLE PO SCH (10:46)
[2016-09-29] MEDS: LISINOPRIL 5 MG TABLET PO SCH (10:46)
[2016-09-29] MEDS: AMLODIPINE BESYLATE 5 MG TABLET PO SCH (10:46)
[2016-09-29] MEDS: EZETIMIBE 10 MG TABLET PO SCH (10:46)
--- NOTE | 2016-09-29 12:09 | PDOC DISCHARGE SUMMARY ---
General - Admit/Disc Date/PCP Admission Date/Primary Care Provider: 09/22/16 18:08 Discharge Date: 09/29/16 - Discharge Diagnosis (1) HTN (hypertension) Is this a current diagnosis for this admission?: Yes Summary: Will continue Norvasc and Lisinopril. (2) Altered mental status Is this a current diagnosis for this admission?: Yes Summary: Secondary to Opioid Abuse: Opioid discontinue. (3) Opioid intoxication Is this a current diagnosis for this admission?: Yes Summary: Secondary to Misuse of Medication: Opioid Discontinued. (4) CHERYL (acute kidney injury) Is this a current diagnosis for this admission?: Yes Summary: Secondary to Dehydration: Resolved. (5) Hyperkalemia Is this a current diagnosis for this admission?: Yes Summary: Resolved. Secondary to Dehydration. (6) BPH (benign prostatic hyperplasia) Is this a current diagnosis for this admission?: Yes Summary: Will continue Finasteride (7) CVA, old, aphasia Is this a current diagnosis for this admission?: Yes Summary: No evidence of acute CVA (8) Sinus bradycardia Is this a current diagnosis for this admission?: Yes Summary: Pt asymptomatic sinus bradycardia. - Additional Information Resuscitation Status: Full Code Discharge Diet: Regular Discharge Activity: Activity As Tolerated Home Medications: Finasteride [Proscar 5 mg Tablet] 5 mg PO DAILY 06/07/14 Levetiracetam [Keppra] 250 mg PO BID 06/07/14 Docusate Sodium 100 mg PO BID 09/22/16 Ezetimibe [Zetia 10 mg Tablet] 10 mg PO DAILY 09/22/16 Simvastatin 20 mg PO DAILY 09/22/16 Amlodipine Besylate [Norvasc 5 mg Tablet] 5 mg PO DAILY tablet 09/29/16 Aspirin [Aspirin 81 mg Chewable Tablet] 81 mg PO DAILY tab.chew 09/29/16 Lisinopril [Prinivil 5 mg Tablet] 5 mg PO DAILY tablet 09/29/16 Lorazepam [Ativan 0.5 mg Tablet] 0.5 mg PO Q8HP PRN #10 tablet 09/29/16 History of Present Illness History of Present Illness: WINSOME MILLER is a 80 year old male admitted for Altered Mental Status changes. Hospital Course Hospital Course: Patient is a 80-year-old gentleman that was admitted to our facility for altered mental status. Patient was found to have acute metabolic encephalopathy secondary to opioid use. Opioids were discontinued patient's mentation did improve. Patient had had a CVA in the past and had expressive aphasia therefore patient is not able to communicate well. Pt was noted to have elevated potassium which was secondary to dehydration. Pt was given IVFs. Pt was noted to have acute renal injury which improved with IVF administration. Pt is going to short term rehab for continuation of care. Pt' s home involvement currently being evaluated. Physical Exam Vital Signs: Temp Pulse Resp BP Pulse Ox 97.5 F 57 L 19 130/44 H 99 09/29/16 07:51 09/29/16 07:51 09/29/16 07:51 09/29/16 07:51 09/29/16 07:51 Intake & Output 09/28/16 09/29/16 09/30/16 06:59 06:59 06:59 Intake Total 976 1143 Balance 976 1143 Weight 57 kg 53.7 kg General appearance: PRESENT: no acute distress, well-developed, well-nourished Head exam: PRESENT: atraumatic, normocephalic Eye exam: PRESENT: conjunctiva pink, EOMI. ABSENT: scleral icterus Ear exam: PRESENT: normal external ear exam Mouth exam: PRESENT: moist, tongue midline Neck exam: ABSENT: carotid bruit, JVD, lymphadenopathy, thyromegaly Respiratory exam: PRESENT: clear to auscultation yumiko. ABSENT: rales, rhonchi, wheezes Cardiovascular exam: PRESENT: bradycardia, RRR. ABSENT: diastolic murmur, rubs , systolic murmur Pulses: PRESENT: normal dorsalis pedis pul Vascular exam: PRESENT: normal capillary refill GI/Abdominal exam: PRESENT: normal bowel sounds, soft. ABSENT: distended, guarding, mass, organolmegaly, rebound, tenderness Extremities exam: PRESENT: full ROM. ABSENT: calf tenderness, clubbing, pedal edema Musculoskeletal exam: PRESENT: full ROM Neurological exam: PRESENT: alert, awake, oriented to person Psychiatric exam: PRESENT: appropriate affect, normal mood. ABSENT: homicidal ideation, suicidal ideation Skin exam: PRESENT: dry, warm Results Laboratory Results: 09/28/16 20:35 09/29/16 04:05 09/28/16 09/29/16 20:35 04:05 WBC 6.3 RBC 2.89 L Hgb 9.4 L Hct 27.5 L MCV 95 MCH 32.5 MCHC 34.1 RDW 13.5 Plt Count 110 L Sodium 142.3 Potassium 4.5 Chloride 108 H Carbon Dioxide 27 Anion Gap 7 BUN 31 H Creatinine 1.14 Est GFR ( Amer) > 60 Est GFR (Non-Af Amer) > 60 Glucose 87 Calcium 9.5 Impressions: Chest X-Ray 09/22/16 15:07 IMPRESSION: No acute findings Head CT 09/22/16 16:08 IMPRESSION: No acute findings. Multiple old infarcts, unchanged. Plan Time Spent: Greater than 30 Minutes
[2016-09-29 15:54] VITALS: BP 106/42
== END 2016-09-29 15:59 | DRG 92 ==
LOC: ER 15:01 → EH 17:25 → UNDOADMIN 17:25 → EH 18:08 → 3S 21:10 → 3W 09-25 18:40
PROVIDERS: ADMIT Hospitalist; ATTEND Hospitalist
DX: G92 Toxic encephalopathy (principal); N17.9 Acute kidney failure, unspecified; T40.2X5A Adverse effect of other opioids, initial encounter; Y92.9 Unspecified place or not applicable; F11.929 Opioid use, unspecified with intoxication, unspecified; E87.5 Hyperkalemia; E86.0 Dehydration; R00.1 Bradycardia, unspecified; I10 Essential (primary) hypertension; N40.0 Benign prostatic hyperplasia without lower urinary tract symptoms; G40.909 Epilepsy, unspecified, not intractable, without status epilepticus; M54.9 Dorsalgia, unspecified; G89.29 Other chronic pain; E78.5 Hyperlipidemia, unspecified; Z79.899 Other long term (current) drug therapy; I69.320 Aphasia following cerebral infarction
CPT/HCPCS: 36415; 51701; 70450; 71010; 80048; 80053; 80307; 81001; 82550; 82803; 83605; 83690; 83735; 84484; 85025; 85027; 87086; 93005; 93010; 96374; 96375; 99285; G8978-GP; G8979-GP; J1644; J2310; J2405; J7030

== ENCOUNTER → 2016-11-08 | Outpatient (CLI) | payer OTHER, MEDICARE ==
[2016-11-08 12:02] LABS: ABSOLUTE EOSINOPHILS # (AUTO) 0.2 10^3/uL (0.0-0.6); ABSOLUTE LYMPHOCYTES (AUTO) 2.1 10^3/uL (0.5-4.7); ABSOLUTE MONOCYTES (AUTO) 0.7 10^3/uL (0.1-1.4); ABSOLUTE NEUT (AUTO) 4.1 10^3/uL (1.7-8.2); BASOPHILS % (AUTO) 0.5 % (0-2); EOSINOPHILS % (AUTO) 2.2 % (0-6); HEMOGLOBIN 10.1 g/dL (13.5-17.0); HGB HCT DIFFERENCE 1.3; LYMPHOCYTES % (AUTO) 30.1 % (13-45); MEAN CORPUSCULAR HEMOGLOBIN 33.3 pg (27.0-33.4); MEAN CORPUSCULAR HGB CONC 34.8 g/dL (32.0-36.0); MEAN CORPUSCULAR VOLUME 96 fl (80-97); MONOCYTES % (AUTO) 9.3 % (3-13); RED BLOOD COUNT 3.03 10^6/uL (4.35-5.55); RED CELL DISTRIBUTION WIDTH 14.6 % (11.5-14.0); SEGMENTED NEUTROPHILS % (AUTO) 57.9 % (42-78); WHITE BLOOD COUNT 7.1 10^3/uL (4.0-10.5)
[2016-11-08 12:03] LABS: APPEARANCE,URINE CLEAR; BILIRUBIN,URINE NEGATIVE (NEGATIVE); GLUCOSE, URINE NEGATIVE (NEGATIVE); KETONES,URINE NEGATIVE (NEGATIVE); LEUKOCYTE ESTERASE,URINE NEGATIVE (NEGATIVE); NITRITE,URINE NEGATIVE (NEGATIVE); PROTEIN,URINE NEGATIVE (NEGATIVE); URINE SPECIFIC GRAVITY 1.008; UROBILINOGEN,URINE NEGATIVE mg/dL (<2.0)
[2016-11-08 12:10] LABS: HEMATOCRIT 29.2 % (37.9-51.0); HEMOGLOBIN 10.2 g/dL (13.5-17.0); HGB HCT DIFFERENCE 1.4; MEAN CORPUSCULAR HEMOGLOBIN 33.4 pg (27.0-33.4); MEAN CORPUSCULAR HGB CONC 34.8 g/dL (32.0-36.0); MEAN CORPUSCULAR VOLUME 96 fl (80-97); RED BLOOD COUNT 3.05 10^6/uL (4.35-5.55); RED CELL DISTRIBUTION WIDTH 14.4 % (11.5-14.0); WHITE BLOOD COUNT 7.1 10^3/uL (4.0-10.5)
[2016-11-08 12:22] LABS: ANION GAP 8 (5-19); BLOOD UREA NITROGEN 33 mg/dL (7-20); CALCIUM 9.7 mg/dL (8.4-10.2); CARBON DIOXIDE 28 mmol/L (22-30); CHLORIDE 106 mmol/L (98-107); CREATININE RESULT 1.31 mg/dL (0.52-1.25); GLUCOSE 90 mg/dL (75-110); POTASSIUM 5.2 mmol/L (3.6-5.0); SODIUM 142.2 mmol/L (137-145)
== END ==
LOC: OD 10:41
PROVIDERS: ATTEND Internal Medicine Nephrology
DX: I12.9 Hypertensive chronic kidney disease with stage 1 through stage 4 chronic kidney disease, or unspecified chronic kidney disease (principal); N18.3 Chronic kidney disease, stage 3 (moderate); E87.5 Hyperkalemia; D64.9 Anemia, unspecified
CPT/HCPCS: 36415; 80048; 81001; 82728; 83540; 83550; 84466; 85025; 85027; 85045

== ENCOUNTER → 2016-12-28 | Outpatient (CLI) | payer MEDICARE, OTHER ==
[2016-12-28 11:54] LABS: ANION GAP 11 (5-19); BLOOD UREA NITROGEN 23 mg/dL (7-20); CALCIUM 9.5 mg/dL (8.4-10.2); CARBON DIOXIDE 30 mmol/L (22-30); CHLORIDE 104 mmol/L (98-107); CREATININE RESULT 1.21 mg/dL (0.52-1.25); GLUCOSE 76 mg/dL (75-110); POTASSIUM 4.7 mmol/L (3.6-5.0); SODIUM 144.9 mmol/L (137-145)
== END ==
LOC: OD 10:14
PROVIDERS: ATTEND Internal Medicine Cardiovascular Disease
DX: N18.3 Chronic kidney disease, stage 3 (moderate) (principal); E87.5 Hyperkalemia; Z79.01 Long term (current) use of anticoagulants; Z79.899 Other long term (current) drug therapy
CPT/HCPCS: 36415; 80048

== ENCOUNTER → 2017-10-28 | Outpatient (CLI) | payer MEDICARE, OTHER ==
[2017-10-28 10:42] LABS: ANION GAP 6 (5-19); BLOOD UREA NITROGEN 34 mg/dL (7-20); CALCIUM 9.2 mg/dL (8.4-10.2); CARBON DIOXIDE 28 mmol/L (22-30); CHLORIDE 103 mmol/L (98-107); GLUCOSE 75 mg/dL (75-110); POTASSIUM 4.8 mmol/L (3.6-5.0); SODIUM 136.8 mmol/L (137-145)
== END ==
LOC: OH 08:08
PROVIDERS: ATTEND Internal Medicine Cardiovascular Disease
DX: I10 Essential (primary) hypertension (principal); R21 Rash and other nonspecific skin eruption; F41.8 Other specified anxiety disorders
CPT/HCPCS: 36415; 80048

== ENCOUNTER → 2018-06-21 | Outpatient (CLI) | payer MEDICARE, OTHER ==
[2018-06-21 11:55] LABS: HEMOGLOBIN 10.7 g/dL (13.5-17.0); MEAN CORPUSCULAR HEMOGLOBIN 32.3 pg (27.0-33.4); MEAN CORPUSCULAR HGB CONC 33.4 g/dL (32.0-36.0); MEAN CORPUSCULAR VOLUME 97 fl (80-97); PLATELET COUNT 161 10^3/uL (150-450); RED BLOOD COUNT 3.31 10^6/uL (4.35-5.55); RED CELL DISTRIBUTION WIDTH 13.6 % (11.5-14.0); WHITE BLOOD COUNT 6.9 10^3/uL (4.0-10.5)
[2018-06-21 12:17] LABS: ALANINE AMINOTRANSFERASE 17 U/L (21-72); ALBUMIN 4.2 g/dL (3.5-5.0); ALKALINE PHOSPHATASE 47 U/L (38-126); ANION GAP 12 (5-19); ASPARTATE AMINO TRANSFERASE 16 U/L (17-59); BILIRUBIN,DIRECT 0.2 mg/dL (0.0-0.4); BILIRUBIN,TOTAL 0.4 mg/dL (0.2-1.3); BLOOD UREA NITROGEN 31 mg/dL (7-20); CALCIUM 9.7 mg/dL (8.4-10.2); CARBON DIOXIDE 25 mmol/L (22-30); CHLORIDE 107 mmol/L (98-107); CHOLESTEROL 130.52 mg/dL (0-200); GLUCOSE 100 mg/dL (75-110); SODIUM 143.9 mmol/L (137-145); TOTAL PROTEIN 7.2 g/dL (6.3-8.2); TRIGLYCERIDES 121 mg/dL (<150)
[2018-06-21 12:28] LABS: DIRECT LDL 67 mg/dL (<100)
[2018-06-21 12:29] LABS: POTASSIUM 5.9 mmol/L (3.6-5.0)
[2018-06-21 12:30] LABS: BLOOD UREA NITROGEN 31 mg/dL (7-20); CALCIUM 9.7 mg/dL (8.4-10.2); CHLORIDE 107 mmol/L (98-107); GLUCOSE 100 mg/dL (75-110); POTASSIUM 5.9 mmol/L (3.6-5.0)
[2018-06-21 12:31] LABS: ANION GAP 12 (5-19); CARBON DIOXIDE 25 mmol/L (22-30); SODIUM 143.9 mmol/L (137-145)
== END ==
LOC: OD 11:06
PROVIDERS: ATTEND Physician Assistant Medical
DX: I12.9 Hypertensive chronic kidney disease with stage 1 through stage 4 chronic kidney disease, or unspecified chronic kidney disease (principal); N18.3 Chronic kidney disease, stage 3 (moderate); E78.00 Pure hypercholesterolemia, unspecified; E87.5 Hyperkalemia; D64.9 Anemia, unspecified
CPT/HCPCS: 36415; 80048; 80061; 80076; 85027

== ENCOUNTER → 2018-07-05 | Outpatient (CLI) | payer MEDICARE, OTHER ==
[2018-07-05 16:14] LABS: ANION GAP 11 (5-19); BLOOD UREA NITROGEN 45 mg/dL (7-20); CALCIUM 9.2 mg/dL (8.4-10.2); CARBON DIOXIDE 22 mmol/L (22-30); CHLORIDE 109 mmol/L (98-107); GLUCOSE 105 mg/dL (75-110); SODIUM 142.4 mmol/L (137-145)
== END ==
LOC: LAB 15:44
PROVIDERS: ATTEND Internal Medicine Cardiovascular Disease
DX: E87.5 Hyperkalemia (principal)
CPT/HCPCS: 36415; 80048

== ENCOUNTER → 2019-01-12 | Outpatient (CLI) | payer MEDICARE, OTHER ==
[2019-01-12 14:51] LABS: ANION GAP 9 (5-19); BLOOD UREA NITROGEN 26 mg/dL (7-20); CALCIUM 9.3 mg/dL (8.4-10.2); CARBON DIOXIDE 29 mmol/L (22-30); CHLORIDE 105 mmol/L (98-107); GLUCOSE 124 mg/dL (75-110); POTASSIUM 4.1 mmol/L (3.6-5.0)
== END ==
LOC: OD 13:29
PROVIDERS: ATTEND Internal Medicine Cardiovascular Disease
DX: I10 Essential (primary) hypertension (principal); Z79.899 Other long term (current) drug therapy
CPT/HCPCS: 36415; 80048